=== PATIENT | female | born 1985 | race African-American/Black ===

== ENCOUNTER 2024-11-07 03:06 | Inpatient (IN) | payer OTHER ==
[~2024-11-07] VITALS: Ht 152.4 cm; Wt 84.4 kg
[2024-11-07 03:25] VITALS: O2SAT 99
[2024-11-07 04:40] LABS: CHLORIDE 105 mEq/L (98-107); POTASSIUM 3.5 mEq/L (3.5-5.1); SODIUM 140 mEq/L (136-145)
[2024-11-07 04:41] LABS: CARBON DIOXIDE 27 mEq/L (21-32)
[2024-11-07 04:42] LABS: CALCIUM 9.8 mg/dL (8.7-10.4)
[2024-11-07 04:46] LABS: CREATININE 0.7 mg/dL (0.6-1.0); GLUCOSE 122 mg/dL (70-105); UREA NITROGEN BLOOD 7 mg/dL (9-23)
[2024-11-07 04:49] LABS: BASOPHILS % 0.5 % (0.0-2.0); EOSINOPHILS % 0.7 % (0.0-5.0); HEMATOCRIT. 37.3 % (36.0-48.0); HEMOGLOBIN. 12.9 g/dL (12.0-16.0); MEAN CORPUSCULAR HEMOGLOBIN 29.9 pg (28.0-32.0); MEAN CORPUSCULAR HGB CONC 34.4 g/dL (31.0-37.0); MEAN CORPUSCULAR VOLUME 86.9 fL (81.0-99.0); MEAN PLATELET VOLUME 7.1 fl (7.4-10.4); MONOCYTES % 8.8 % (2.0-8.0); PLATELET 308 x1000/uL (130-400); RED CELL DISTRIBUTION WIDTH 13.6 % (11.6-14.6); WHITE BLOOD COUNT 5.5 x1000/uL (4.5-11.0)
[2024-11-07 05:06] LABS: HCG SCREEN NEGATIVE
[2024-11-07] MEDS: SODIUM CHLORIDE 0.9% 1,000 ML IV ONE (05:45)
[2024-11-07] MEDS ORDERED: DOCUSATE SODIUM 100MG CAPSULE PO PRN (08:45)
[2024-11-07] MEDS ORDERED: CLONIDINE 0.1MG TABLET PO PRN (08:45)
[2024-11-07] MEDS ORDERED: GUAIFENESIN 200MG/10ML SUGAR FREE UDC PO PRN (08:45)
[2024-11-07] MEDS ORDERED: IPRATROPIUM/ALBUTEROL 0.5-3(2.5)MG/3ML NEB HHN PRN (08:45)
[2024-11-07] MEDS ORDERED: ONDANSETRON HCL 4MG/2ML INJ IV PRN (08:45)
[2024-11-07] MEDS ORDERED: ACETAMINOPHEN 325MG TABLET PO PRN ×2 (08:45)
[2024-11-07 12:00] VITALS: BP 107/54; PULSE 100; PULSE 65; RESP 19; TEMP 36.00288; TEMP 36.0288; O2SAT 100
[2024-11-07] MEDS: PANTOPRAZOLE 40MG DR TABLET PO SCH (14:29)
[2024-11-07] MEDS: ENOXAPARIN 40MG/0.4ML SYR SUBCUT SCH (14:32)
[2024-11-07] MEDS: SODIUM CHLORIDE 0.9% 1,000 ML IV SCH (14:44)
[2024-11-07 16:00] VITALS: BP 101/50; PULSE 86; RESP 17; TEMP 36.3918; O2SAT 100
[2024-11-07 20:00] VITALS: BP 94/44; PULSE 78; RESP 17; TEMP 36.33624; O2SAT 96
[2024-11-08] VITALS: BP 89/74; PULSE 84; RESP 17; TEMP 36.3918; O2SAT 98
[2024-11-08 03:00] VITALS: BP 97/58
[2024-11-08 08:00] VITALS: BP 113/67; PULSE 73; RESP 18; TEMP 36.22512; O2SAT 100
[2024-11-08] MEDS ORDERED: DEXT 5%/LACTATED RINGERS 1,000 ML IV ONE (08:00)
[2024-11-08 08:17] LABS: CALCIUM 9.4 mg/dL (8.7-10.4); CARBON DIOXIDE 27 mEq/L (21-32); CHLORIDE 109 mEq/L (98-107); POTASSIUM 3.8 mEq/L (3.5-5.1); SODIUM 144 mEq/L (136-145)
[2024-11-08 08:23] LABS: CREATININE 0.7 mg/dL (0.6-1.0); GLUCOSE 84 mg/dL (70-105); TRIGLYCERIDE 73 mg/dL (0-150); UREA NITROGEN BLOOD 6 mg/dL (9-23)
[2024-11-08 08:24] LABS: BASOPHILS % 0.9 % (0.0-2.0); EOSINOPHILS % 0.8 % (0.0-5.0); HEMATOCRIT. 36.5 % (36.0-48.0); HEMOGLOBIN. 12.2 g/dL (12.0-16.0); LDL CHOLESTEROL 118 mg/dL (5-100); MEAN CORPUSCULAR HEMOGLOBIN 29.5 pg (28.0-32.0); MEAN CORPUSCULAR HGB CONC 33.5 g/dL (31.0-37.0); MEAN PLATELET VOLUME 7.5 fl (7.4-10.4); MONOCYTES % 7.8 % (2.0-8.0); NEUTROPHILS % 50.5 % (40.0-76.0); PLATELET 288 x1000/uL (130-400); RED BLOOD CELL COUNT 4.15 mill/uL (4.2-5.4); RED CELL DISTRIBUTION WIDTH 13.7 % (11.6-14.6); WHITE BLOOD COUNT 4.3 x1000/uL (4.5-11.0)
[2024-11-08 08:25] LABS: CHOLESTEROL 174 mg/dL (<200); HDL CHOLESTEROL 44 mg/dL (>65); T4 FREE 1.13 ng/dL (0.89-1.76); THYROID STIMULATING HORMONE 0.73 uIU/mL (0.55-4.78)
[2024-11-08 12:45] VITALS: BP 113/67; PULSE 73; RESP 18; TEMP 36.22512; O2SAT 100
== END 2024-11-08 15:53 | disposition home or self-care (01) | DRG 918 ==
LOC: ER 03:06 → 5WST 08:01 → EDBEDREQ 08:10
PROVIDERS: ADMIT Hospitalist; ATTEND Hospitalist
DX: T40.711A Poisoning by cannabis, accidental (unintentional), initial encounter (principal); I95.9 Hypotension, unspecified; F19.10 Other psychoactive substance abuse, uncomplicated; R73.9 Hyperglycemia, unspecified; F32.A Depression, unspecified; R53.81 Other malaise; Y92.89 Other specified places as the place of occurrence of the external cause
CPT/HCPCS: 36415; 80048; 80061; 84439; 84443; 84703; 85025; 93005; J1650; J7030

== ENCOUNTER 2025-10-15 07:04 | Emergency (ER) | payer OTHER ==
[~2025-10-15] VITALS: Ht 172.7 cm; Wt 82.0 kg
[2025-10-15] MEDS: ONDANSETRON HCL 4MG/2ML INJ IV ONE ×2 (08:31→09:57)
[2025-10-15] MEDS: SODIUM CHLORIDE 0.9% 1,000 ML IV ONE ×2 (08:32→09:57)
[2025-10-15] MEDS: KETOROLAC 15MG/ML VIAL IV ONE (08:32)
[2025-10-15 09:00] LABS: BASOPHILS % 0.7 % (0.0-2.0); EOSINOPHILS % 0.6 % (0.0-5.0); HEMATOCRIT. 39.1 % (36.0-48.0); HEMOGLOBIN. 13.5 g/dL (12.0-16.0); LYMPHOCYTES % 22.7 % (20.0-50.0); MEAN PLATELET VOLUME 7.3 fl (7.4-10.4); MONOCYTES % 5.1 % (2.0-8.0); NEUTROPHILS % 70.9 % (40.0-76.0); PLATELET 330 x1000/uL (130-400); RED BLOOD CELL COUNT 4.54 mill/uL (4.2-5.4); RED CELL DISTRIBUTION WIDTH 13.6 % (11.6-14.6)
[2025-10-15 09:24] LABS: CREATININE 0.7 mg/dL (0.6-1.0)
[2025-10-15 09:25] LABS: UREA NITROGEN BLOOD < 5 mg/dL (9-23)
[2025-10-15 09:26] LABS: ASPARTATE AMINOTRANSFERASE 14 IU/L (<34); BILIRUBIN DIRECT 0.1 mg/dL (<=3.0)
[2025-10-15 09:27] LABS: BILIRUBIN TOTAL 0.5 mg/dL (0.1-1.0); HCG SCREEN NEGATIVE; PROTEIN TOTAL 7.8 g/dL (6.0-8.3)
[2025-10-15 11:28] LABS: CLARITY URINE CLEAR (CLEAR); COLOR URINE YELLOW (YELLOW); GLUCOSE URINE NEGATIVE (NEGATIVE); KETONES URINE TRACE (NEGATIVE); LEUKOCYTE ESTERASE URINE NEGATIVE (NEGATIVE); NITRITE URINE NEGATIVE (NEGATIVE); OCCULT BLOOD URINE NEGATIVE (NEGATIVE); PH URINE 8.5 (4.5-8.0); PROTEIN URINE NEGATIVE (NEGATIVE); SPECIFIC GRAVITY URINE 1.015 (1.005-1.030); UROBILINOGEN URINE 0.2 E.U./dL (0.2-1.0)
[2025-10-15 12:01] VITALS: O2SAT 100
[2025-10-15] MEDS: MORPHINE SULFATE 2 MG/ML INJ (NOT FOR IM USE) IV SCH (12:50)
[2025-10-15 13:07] VITALS: BP 124/62; PULSE 70; RESP 16; TEMP 37.1; O2SAT 100
[2025-10-15] MEDS: DIPHENHYDRAMINE 50MG/ML VIAL IV ONE (13:18)
== END 2025-10-15 13:30 | disposition short-term general hospital (02) ==
LOC: ER 07:04 → CMPBEDREQ 10-16 08:08
DX: R11.2 Nausea with vomiting, unspecified (principal); R10.31 Right lower quadrant pain; Z90.710 Acquired absence of both cervix and uterus
CPT/HCPCS: 80076; 80048; 81003; 84703; 83690; 85025; 36415; 74176; 96361; 96374; 96375; 96376; 99285; J1200; J1885; J2405; J2270; J7030; Z7610 ×3